=== PATIENT | female | born 1985 | race American Indian/Alaskan Native ===

== ENCOUNTER 2019-06-17 20:53 | Emergency (ER) | payer SELFPAY ==
--- NOTE | 2019-06-17 21:48 | Emergency Department Report ---
HPI - General Chief Complaint: Fall Time Seen by Provider: 06/17/19 21:29 - HPI HPI: 33-year-old female presents to the emergency department via EMS from her apartment complex after she either fell or passed out and hit her head. The patient was smoking marijuana with her neighbor and shortly afterwards she says that she got very dizzy. It appears that she passed out as she woke up on the floor as she was leaving the neighbors apartment. She has a large bump to the back of her head. After she woke up she had multiple episodes of nausea and vomiting. At this point EMS was called and the patient still had 1 or 2 more episodes of vomiting. At this time she denies any nausea. She denies any vision change, back pain, extremity pain, chest pain or palpitations. She did not take anything or receive anything for symptoms prior to arrival. No past medical history. No recent travel or sick contacts at home. ED Past Medical Hx - Past Medical History Previous Medical History?: No - Surgical History Past Surgical History?: No - Social History Smoking Status: Current Every Day Smoker Substance Use Type: None ED Review of Systems ROS: Stated complaint: FALL/HIT HEAD/VOMITING/WEAKNESS Other details as noted in HPI Comment: All other systems reviewed and negative Constitutional: denies: chills, fever Eyes: denies: eye pain, vision change ENT: denies: ear pain, throat pain Respiratory: denies: cough, shortness of breath Cardiovascular: syncope. denies: chest pain, palpitations Gastrointestinal: nausea, vomiting Genitourinary: denies: dysuria, discharge Musculoskeletal: denies: back pain, arthralgia Skin: denies: rash, lesions Neurological: headache, other (dizziness) Physical Exam - Physical Exam Vital Signs: Vital Signs 06/17/19 06/17/19 21:12 21:26 Temperature 98.0 F Pulse Rate 91 H 85 Respiratory 16 Rate Blood Pressure 101/65 [Left] O2 Sat by Pulse 100 Oximetry Physical Exam: GENERAL: The patient is well-developed well-nourished. HENT: Normocephalic. There is a non-expanding hematoma to the left posterior scalp. Patient has moist mucous membranes. EYES: Extraocular motions are intact. Pupils equal reactive to light bilaterally. No nystagmus. NECK: Supple. Trachea is midline. CHEST/LUNGS: Clear to auscultation. There is no respiratory distress noted. HEART/CARDIOVASCULAR: Regular. There is no tachycardia. There is no murmur. ABDOMEN: Abdomen is soft, nontender. Patient has normal bowel sounds. SKIN: Skin is warm and dry. NEURO: The patient is awake, alert, and oriented. The patient is cooperative. The patient has no focal neurologic deficits. Normal speech. Cranial nerves II through XII grossly intact. MUSCULOSKELETAL: There is no tenderness or deformity. There is no limitation range of motion. There is no evidence of acute injury. ED Course Vital Signs 06/17/19 06/17/19 21:12 21:26 Temperature 98.0 F Pulse Rate 91 H 85 Respiratory 16 Rate Blood Pressure 101/65 [Left] O2 Sat by Pulse 100 Oximetry ED Medical Decision Making - Lab Data Result diagrams: 06/17/19 21:46 06/17/19 21:46 - EKG Data -: EKG Interpreted by Ia EKG shows normal: sinus rhythm, axis, intervals, QRS complexes, ST-T waves Rate: normal - EKG Data When compared to previous EKG there are: previous EKG unavailable Interpretation: normal EKG - Radiology Data Radiology results: report reviewed CT of the head does not show any acute intracranial process including no isc hemia, shift, mass, bleeding or skull fracture. CT of the cervical spine does not show any fracture, subluxation, or any acute process. - Medical Decision Making This patient presents to the emergency department after having a syncopal episode after smoking marijuana. She hit her head causing a non-expanding left posterior scalp hematoma. After passing out and hitting her head she had multiple episodes of nausea with vomiting. Since being in the emergency department the patient has been awake, alert, oriented without any focal, motor or sensory deficits and her cranial nerves are intact. There is been no further nausea or vomiting. CT scan of the head did not show any bleed, shift, mass, ischemia, or any other acute process. CT of the cervical spine did not show any fracture, subluxation, or any other acute process. Labs have been unremarkable. Urine drug screen positive only for marijuana. Patient seen ambulatory in the emergency department prior to discharge and both appears and feels stable. She will follow-up with a primary care physician and return to the ER with any worsening of her symptoms or any acute distress. - Differential Diagnosis Contusion, concussion, skull fracture, vasovagal, orthostatic hypotension Critical Care Time: No Critical care attestation.: If time is entered above; I have spent that time in minutes in the direct care of this critically ill patient, excluding procedure time. ED Disposition Clinical Impression: Marijuana use Syncope Qualifiers: Syncope type: unspecified Qualified Code(s): R55 - Syncope and collapse Scalp hematoma Qualifiers: Encounter type: initial encounter Qualified Code(s): S00.03XA - Contusion of scalp, initial encounter Disposition: TO HOME OR SELFCARE Is pt being admited?: No Condition: Stable Instructions: Syncope (ED), Minor Head Injury (ED), Post Concussion Syndrome (ED) Additional Instructions: Please follow-up with a primary care physician in the next few days. Return to the emergency department with any further episodes of passing out, worsening of your symptoms, or with any acute distress. Referrals: PRIMARY CARE, [Primary Care Provider] - 2-3 Days Time of Disposition: 01:52
[2019-06-17 22:08] LABS: Basophils % (Auto) 0.4 % (0.0-1.8); Eosinophils # (Auto) 0.1 K/mm3 (0.0-0.4); Eosinophils % (Auto) 0.6 % (0.0-4.3); Hematocrit 38.1 % (30.3-42.9); Hemoglobin 12.8 gm/dl (10.1-14.3); Lymphocytes # (Auto) 1.6 K/mm3 (1.2-5.4); Lymphocytes % (Auto) 12.7 % (13.4-35.0); Mean Corpuscular HGB Conc 34 % (30-34); Mean Corpuscular Volume 90 fl (79-97); Monocytes # (Auto) 0.7 K/mm3 (0.0-0.8); Monocytes % (Auto) 5.6 % (0.0-7.3); Platelet Count 290 K/mm3 (140-440); Red Blood Count 4.23 M/mm3 (3.65-5.03); Red Cell Distribution Width 12.7 % (13.2-15.2)
[2019-06-17 22:27] LABS: BUN/Creatinine Ratio 27; Blood Urea Nitrogen 16 mg/dL (7-17); Calcium 9.2 mg/dL (8.4-10.2); Hemolysis Index 10
--- NOTE | 2019-06-18 01:12 | Cat Scan Report ---
Head CT without intravenous contrast INDICATION: Closed head trauma COMPARISON: None FINDINGS: The ventricles are normal in size and position. No hemorrhage or extra-axial fluid collecti on. No edema or mass effect. No focal infarct seen. Portions of the sinuses visualized are clear. No skull fracture identified. IMPRESSION: Negative head CT Automated exposure control was utilized to diminish radiation dose Signer Name: Brennan Sandoval MD Signed: 06/18/2019 1:07 AM Workstation Name: [id number]
--- NOTE | 2019-06-18 01:15 | Cat Scan Report ---
CT of the cervical spine INDICATION: Neck pain following fall today FINDINGS: The vertebral body heights and disc spaces are maintained. There is no fracture or subluxat ion. No spurring or facet arthropathy. No posterior element fracture or facet lock. Odontoid and spin ous processes are unremarkable. No abnormality seen. IMPRESSION: Normal cervical spine CT. All CT scans at this location are performed using CT dose reduction for ALARA by means of automated e xposure control Signer Name: Brennan Sandoval MD Signed: 06/18/2019 1:11 AM Workstation Name: [id number]
[2019-06-18] MEDS ORDERED: KETOROLAC 30 MG/1 ML INJ IV ONE (01:18)
[2019-06-18 01:49] LABS: Amphetamine Screen,Urine PRESUMPTIVE NEGATIVE; Benzodiazepines Screen,Urine PRESUMPTIVE NEGATIVE; Cocaine Screen,Urine PRESUMPTIVE NEGATIVE; Methadone Screen,Urine PRESUMPTIVE NEGATIVE; Opiate Screen,Urine PRESUMPTIVE NEGATIVE
[2019-06-18 02:14] LABS: Cannabinoid Screen,Urine PRESUMPTIVE POSITIVE
[2019-06-18 02:36] VITALS: BP 101/65
== END 2019-06-18 02:35 | disposition home or self-care (01) ==
LOC: ED 20:53
DX: S00.03XA Contusion of scalp, initial encounter (principal); R55 Syncope and collapse; F12.10 Cannabis abuse, uncomplicated; F17.200 Nicotine dependence, unspecified, uncomplicated; W22.8XXA Striking against or struck by other objects, initial encounter; Y93.89 Activity, other specified; Y92.89 Other specified places as the place of occurrence of the external cause; Y99.8 Other external cause status
CPT/HCPCS: 36415; 70450; 72125; 80048; 80307; 84443; 84703; 85025; 93005; 93010; 96374; 99285; J1885; 80320; G0480